=== PATIENT | male | born 1980 | race Caucasian/White ===

== ENCOUNTER 2021-01-14 13:23 | Emergency (ER) | payer OTHER ==
[2021-01-14] MEDS ORDERED: Lidocaine 1% (PF) 30 ML VIAL ONE (14:48)
[2021-01-14] MEDS ORDERED: cefTRIAXone\\ROCEPHIN 1 GM VIAL ONE (14:48)
== END 2021-01-14 15:11 ==
LOC: CSHERS 13:23 → EEVIPCON 13:23 → CSHERS 15:11
DX: L02.212 Cutaneous abscess of back [any part, except buttock and flank] (principal); L03.312 Cellulitis of back [any part except buttock and flank]; E10.9 Type 1 diabetes mellitus without complications; E78.5 Hyperlipidemia, unspecified; I10 Essential (primary) hypertension; Z79.4 Long term (current) use of insulin; Z79.82 Long term (current) use of aspirin; Z79.899 Other long term (current) drug therapy
CPT/HCPCS: 96372; J0696; J2001